=== PATIENT | female | born 1985 | race Caucasian/White ===

== ENCOUNTER → 2016-05-19 | Outpatient (REF) | LOC: ZLAB.WCH 12:41 | DX: Z01.89 Encounter for other specified special examinations (principal) ==

== ENCOUNTER → 2016-05-19 | Outpatient (REF) | LOC: ZLAB.WCH 12:40 | DX: Z01.89 Encounter for other specified special examinations (principal) ==

== ENCOUNTER → 2017-01-02 | Outpatient (REF) | LOC: COL.CARD 15:52 | DX: R00.0 Tachycardia, unspecified (principal) ==

== ENCOUNTER → 2017-03-29 | Outpatient (REF) | LOC: ZLAB.WCH 08:32 | DX: Z01.89 Encounter for other specified special examinations (principal) ==

== ENCOUNTER → 2021-10-22 | Outpatient (CLI) | payer SELFPAY | LOC: COL.PUL 11:19 | DX: R06.02 Shortness of breath (principal) ==